=== PATIENT | male | born 1960 | race Caucasian/White ===

== ENCOUNTER → 2023-12-02 | Outpatient (CLI) | payer MEDICARE, SELFPAY ==
--- NOTE | 2023-12-02 15:26 | NEURO ---
NCS and/or EMG Patient Report Ordering Doctor: ERIBERTO MARKHAM DATE OF SERVICE: 12/02/23 Abisai presents with complaints of numbness and tingling in both legs. He has a history of multiple back surgeries. He has ongoing low back pain and leg weakness. Electrodiagnostic findings: Right peroneal motor nerve demonstrates normal distal latency with reduced amplitude. There is decreased conduction velocity. Left peroneal motor nerve demonstrates normal distal latency, amplitude and conduction velocity. Decreased right tibial motor amplitude. Normal left tibial motor response. Normal peroneal and tibial F?waves. Prolonged H?reflex bilaterally. Normal sural and superficial peroneal responses. Prolonged lateral femoral cutaneous latency bilaterally. Needle EMG testing was performed in the right lower limb and the Medial gastrocnemius, peroneus longus, tibialis anterior and vastus medialis. In the left leg needle testing was performed in the vastus medialis, tibialis anterior and medial gastrocnemius. Due to poor tolerance to the examination no further muscles were tested. All muscles that were tested showed normal amplitude and duration without acute denervation. There was no polyphasic activity. Electrodiagnostic impression this is an abnormal, though limited study in the lower limbs as a complete needle EMG examination was not performed. 1. Electrodiagnostic findings suggestive of peripheral polyneuropathy, motor greater than sensory. There is some evidence of axonal loss. 2. Due to an incomplete needle EMG examination, an accurate assessment could not be made regarding lumbosacral radiculopathy. Multi Select Codes Neurology Neurology Interp Codes: 89954-14 EMG, Limited (2) and 83060-46 Nrv d test 11-12 studies (interp)
== END | disposition home or self-care (01) ==
PROVIDERS: PCP Student in an Organized Health Care Education/Training Program; Referring Provider Psychiatry & Neurology Neurology; Visit Provider Psychiatry & Neurology Neurology
DX: M54.16 Radiculopathy, lumbar region (principal); G62.9 Polyneuropathy, unspecified
CPT/HCPCS: 95885; 95886; 95912